=== PATIENT | female | born 1965 | race Two or more races ===

== ENCOUNTER 2018-10-24 08:48 | Outpatient (CLI) | payer OTHER | END 2018-10-24 08:59 | disposition home or self-care (01) | LOC: SONOGRAMA 08:48 | DX: E04.2 Nontoxic multinodular goiter (principal) ==

== ENCOUNTER 2018-10-24 09:19 | Outpatient (CLI) | payer OTHER | END 2018-10-24 09:21 | disposition home or self-care (01) | LOC: NUCLEAR 09:19 | DX: M81.0 Age-related osteoporosis without current pathological fracture (principal) ==

== ENCOUNTER 2020-11-10 10:05 | Outpatient (CLI) | payer OTHER | END 2020-11-10 10:07 | disposition home or self-care (01) | LOC: NUCLEAR 10:05 | PROVIDERS: ATTEND Internal Medicine Sports Medicine | DX: M85.88 Other specified disorders of bone density and structure, other site (principal) ==